=== PATIENT | male | born 1970 | race Caucasian/White ===

== ENCOUNTER 2016-09-12 19:47 | Emergency (ER) | payer OTHER ==
[2016-09-12] MEDS ORDERED: ADENOSINE 3 MG/ML 2 ML VIAL IVP STA (20:04)
[2016-09-12] MEDS ORDERED: SODIUM CHLORIDE 0.9% 1,000 ML IV STA ×3 (20:08→20:10)
[2016-09-12 20:22] LABS: Appearance,Urine Clear (Clear); Aty Lym Flag Marked; Bilirubin,Urine Negative (Negative); CH 31.5; CHCM 36.5; Glucose,Urine (UA) Negative (Negative); HCT 45.9 % (39.0-53.0); HDW 2.85; HGB 16.8 gm/dL (13.0-17.5); Ketones,Urine Negative (Negative); Leukocyte Esterase,Urine Negative (Negative); MCH 31.7 pg (25.0-35.0); MCHC 36.6 g/dL (31.0-37.0); MCV 86.6 fL (80.0-100.0); Mean Platelet Volume 6.6; Nitrite,Urine Negative (Negative); PH, Urine 6.5 (5.0-8.0); Protein,Urine Negative (Negative); RDW 12.6 % (11.5-15.5); Specific Gravity,Urine 1.003 (1.001-1.035); UA Billing (MACRO vs. MICRO) CHEM; Urobilinogen,Urine <2.0 mg/dL (<2.0); WBC 8.4 k/uL (3.8-10.6); WBC (Perox) 8.24
[2016-09-12 20:32] LABS: ALT 230 U/L (21-72); AST 186 U/L (17-59); Alkaline Phosphatase 176 U/L (38-126); Anion Gap 13 mmol/L; Blood Urea Nitrogen 16 mg/dL (9-20); Calcium 8.9 mg/dL (8.4-10.2); Carbon Dioxide 24 mmol/L (22-30); Chloride 99 mmol/L (98-107); Glucose 188 mg/dL (74-99); Non-African American GFR(MDRD) 58 (>60 ml/min/1.73 sqM); Phosphorous 2.2 mg/dL (2.5-4.5); Potassium 4.2 mmol/L (3.5-5.1); Sodium 136 mmol/L (137-145); Total Protein 7.7 g/dL (6.3-8.2)
[2016-09-12] MEDS ORDERED: RX INFO: IV CONTRAST WAS GIVEN 1 EACH MISC MISCELLANE PRN (20:42)
[2016-09-12 20:46] LABS: Creatine Kinase 189 U/L (55-170)
[2016-09-12 20:47] LABS: Add Differential Manual Differential
--- NOTE | 2016-09-12 20:50 | ED ---
General Adult HPI - General Chief complaint: Chest Pain Stated complaint: Chest Pain Time Seen by Provider: 09/12/16 20:08 Source: patient, RN notes reviewed, old records reviewed Mode of arrival: wheelchair Limitations: no limitations - History of Present Illness Initial comments: This is a 46-year-old male in the ER for evaluation of shortness of breath and tachycardia and feels he is going to pass out, near syncope. Patient has no prior history of this event happening. Patient is on vacation at this time. Patient denies any drugs or alcohol abuse. Patient denies significant chest pain which is now feel well. Medical history is consistent for blood clots and PE in the is an outgrowth every day. No recent fevers, congestion, patient's it is our smoke earlier and was having some shortness of breath. No recent fevers - Related Data Home Medications Medication Instructions Recorded Confirmed Acetaminophen [Tylenol] 1,000 mg PO BID PRN 09/12/16 09/12/16 Apixaban [Eliquis] 5 mg PO BID 09/12/16 09/12/16 Allergies Allergy/AdvReac Type Severity Reaction Status Date / Time No Known Allergies Allergy Verified 09/12/16 20:30 Review of Systems ROS Statement: Those systems with pertinent positive or pertinent negative responses have been documented in the HPI. ROS Other: All systems not noted in ROS Statement are negative. Past Medical History Additional Past Medical History / Comment(s): PE History of Any Multi-Drug Resistant Organisms: None Reported Past Surgical History: No Surgical Hx Reported Past Psychological History: No Psychological Hx Reported Smoking Status: Never smoker Past Alcohol Use History: None Reported Past Drug Use History: None Reported General Exam Limitations: no limitations General appearance: alert, anxious, in distress Head exam: Present: atraumatic, normocephalic, normal inspection Eye exam: Present: normal appearance, PERRL, EOMI. Absent: scleral icterus, conjunctival injection, periorbital swelling ENT exam: Present: normal exam, mucous membranes moist Neck exam: Present: normal inspection. Absent: tenderness, meningismus, lymphadenopathy Respiratory exam: Present: normal lung sounds bilaterally. Absent: respiratory distress, wheezes, rales, rhonchi, stridor Cardiovascular Exam: Present: tachycardia, irregular rhythm, normal heart sounds. Absent: systolic murmur, diastolic murmur, rubs, gallop, clicks GI/Abdominal exam: Present: soft, normal bowel sounds. Absent: distended, tenderness, guarding, rebound, rigid Extremities exam: Present: normal inspection, full ROM, normal capillary refill. Absent: tenderness, pedal edema, joint swelling, calf tenderness Back exam: Present: normal inspection Neurological exam: Present: alert, oriented X3, CN II-XII intact Psychiatric exam: Present: normal affect, normal mood Skin exam: Present: warm, dry, intact, normal color. Absent: rash Course Vital Signs 09/12/16 09/12/16 09/12/16 19:50 20:06 20:22 Temperature 97.8 F Pulse Rate 203 H 148 H 114 H Respiratory 18 22 20 Rate Blood Pressure 156/87 126/82 127/85 O2 Sat by Pulse 99 97 Oximetry 09/12/16 09/12/16 21:23 21:24 Temperature 97.5 F L Pulse Rate 70 112 H Respiratory 18 20 Rate Blood Pressure 198/94 137/86 O2 Sat by Pulse 96 95 Oximetry - Reevaluation(s) Reevaluation #1: 09/12/16 20:49 Patient had patient has resolution of SVT after 12 mg of adenosine 09/12/16 20:49 Vagal maneuvers and carotid sinus massage with no improvement Reevaluation #2: 09/12/16 21:53 Patient remains isn't back, feeling improved, no chest pain shortness of breath , no symptoms of syncope or near syncope EKG Findings - EKG Comments: EKG Findings:: EKG shows SVT rate of 211, QRS 80, QTC 420. EKG shows sinus tachycardia rate 152, CO 120, QRS 82, QTC 400. EKG shows sinus tachycardia rate 117, CO 144, QRS 84, QTC 443 Medical Decision Making - Medical Decision Making 46 male the ER for evaluation regarding shortness of breath and heart racing. Patient found to be in SVT. Patient remains without chest pain, repeat repeat EKG showed normal sinus rhythm with no acute disease. Computed tomography scan negative, patient continued to request follow-up with cardiology - Lab Data Result diagrams: 09/12/16 20:04 09/12/16 20:04 Lab Results 09/12/16 09/12/16 09/12/16 Range/Units 20:04 20:04 20:04 WBC 8.4 (3.8-10.6) k/uL RBC 5.30 (4.30-5.90) m/uL Hgb 16.8 (13.0-17.5) gm/dL Hct 45.9 (39.0-53.0) % MCV 86.6 (80.0-100.0) fL MCH 31.7 (25.0-35.0) pg MCHC 36.6 (31.0-37.0) g/dL RDW 12.6 (11.5-15.5) % Plt Count 223 (150-450) k/uL Neutrophils % (Manual) 50.0 % Band Neutrophils % 3.0 % Lymphocytes % (Manual) 31.0 % Monocytes % (Manual) 16.0 % Neutrophils # (Manual) 4.5 (1.3-7.7) k/uL Lymphocytes # (Manual) 2.6 (1.0-4.8) k/uL Monocytes # (Manual) 1.3 H (0-1.0) k/uL Nucleated RBCs 0 (0-0) /100 WBC Manual Slide Review Performed RBC Morphology Normal PT (9.0-12.0) sec INR (<1.1) APTT (22.0-30.0) sec Sodium 136 L (137-145) mmol/L Potassium 4.2 (3.5-5.1) mmol/L Chloride 99 (98-107) mmol/L Carbon Dioxide 24 (22-30) mmol/L Anion Gap 13 mmol/L BUN 16 (9-20) mg/dL Creatinine 1.33 H (0.66-1.25) mg/dL Est GFR (MDRD) Af Amer >60 (>60 ml/min/1.73 sqM) Est GFR (MDRD) Non-Af 58 (>60 ml/min/1.73 sqM) Glucose 188 H (74-99) mg/dL Calcium 8.9 (8.4-10.2) mg/dL Phosphorus 2.2 L (2.5-4.5) mg/dL Magnesium 2.0 (1.6-2.3) mg/dL Total Bilirubin 1.0 (0.2-1.3) mg/dL AST 186 H (17-59) U/L ALT 230 H (21-72) U/L Alkaline Phosphatase 176 H (38-126) U/L Total Creatine Kinase 189 H (55-170) U/L CK-MB (CK-2) 0.7 (0.0-2.4) ng/mL CK-MB (CK-2) Rel Index 0.4 Troponin I <0.012 (0.000-0.034) ng/mL Total Protein 7.7 (6.3-8.2) g/dL Albumin 4.3 (3.5-5.0) g/dL Urine Color Urine Appearance (Clear) Urine pH (5.0-8.0) Ur Specific [place] (1.001-1.035) Urine Protein (Negative) Urine Glucose (UA) (Negative) Urine Ketones (Negative) Urine Blood (Negative) Urine Nitrite (Negative) Urine Bilirubin (Negative) Urine Urobilinogen (<2.0) mg/dL Ur Leukocyte Esterase (Negative) 09/12/16 09/12/16 Range/Units 20:04 20:04 WBC (3.8-10.6) k/uL RBC (4.30-5.90) m/uL Hgb (13.0-17.5) gm/dL Hct (39.0-53.0) % MCV (80.0-100.0) fL MCH (25.0-35.0) pg MCHC (31.0-37.0) g/dL RDW (11.5-15.5) % Plt Count (150-450) k/uL Neutrophils % (Manual) % Band Neutrophils % % Lymphocytes % (Manual) % Monocytes % (Manual) % Neutrophils # (Manual) (1.3-7.7) k/uL Lymphocytes # (Manual) (1.0-4.8) k/uL Monocytes # (Manual) (0-1.0) k/uL Nucleated RBCs (0-0) /100 WBC Manual Slide Review RBC Morphology PT 10.7 (9.0-12.0) sec INR 1.1 (<1.1) APTT 25.4 (22.0-30.0) sec Sodium (137-145) mmol/L Potassium (3.5-5.1) mmol/L Chloride (98-107) mmol/L Carbon Dioxide (22-30) mmol/L Anion Gap mmol/L BUN (9-20) mg/dL Creatinine (0.66-1.25) mg/dL Est GFR (MDRD) Af Amer (>60 ml/min/1.73 sqM) Est GFR (MDRD) Non-Af (>60 ml/min/1.73 sqM) Glucose (74-99) mg/dL Calcium (8.4-10.2) mg/dL Phosphorus (2.5-4.5) mg/dL Magnesium (1.6-2.3) mg/dL Total Bilirubin (0.2-1.3) mg/dL AST (17-59) U/L ALT (21-72) U/L Alkaline Phosphatase (38-126) U/L Total Creatine Kinase (55-170) U/L CK-MB (CK-2) (0.0-2.4) ng/mL CK-MB (CK-2) Rel Index Troponin I (0.000-0.034) ng/mL Total Protein (6.3-8.2) g/dL Albumin (3.5-5.0) g/dL Urine Color Light Yellow Urine Appearance Clear (Clear) Urine pH 6.5 (5.0-8.0) Ur Specific [place] 1.003 (1.001-1.035) Urine Protein Negative (Negative) Urine Glucose (UA) Negative (Negative) Urine Ketones Negative (Negative) Urine Blood Negative (Negative) Urine Nitrite Negative (Negative) Urine Bilirubin Negative (Negative) Urine Urobilinogen <2.0 (<2.0) mg/dL Ur Leukocyte Esterase Negative (Negative) - Radiology Data Radiology results: report reviewed (CT chest is negative for PE), image reviewed Critical Care Time Critical Care Time: Yes Total Critical Care Time: 31 Disposition Clinical Impression: SVT (supraventricular tachycardia) Disposition: HOME SELF-CARE Condition: Good Instructions: Supraventricular Tachycardia (ED) Referrals: Laura Isidro MD [STAFF PHYSICIAN] - 1-2 days
[2016-09-12 20:52] LABS: INR 1.1 (<1.1); Manual Review Performed; Nucleated Red Blood Cells 0 /100 WBC (0-0); Partial Thromboplastin Time 25.4 sec (22.0-30.0); Prothrombin Time 10.7 sec (9.0-12.0); RBC Morphology Normal; Total Cells Counted 100
[2016-09-12 20:57] LABS: Creatine Kinase MB 0.7 ng/mL (0.0-2.4); Troponin I <0.012 ng/mL (0.000-0.034)
--- NOTE | 2016-09-12 21:25 | CT ---
EXAMINATION TYPE: CT angio chest DATE OF EXAM: 09/12/2016 9:14 PM COMPARISON: NONE HISTORY: Patient complains of rapid heart beat. CT DLP: 390.3 mGycm Automated exposure control for dose reduction was used. CONTRAST: CTA scan of the thorax is performed with IV Contrast, patient injected with 80 mL of Visipaque 320, p ulmonary embolism protocol. There are 3-D post processed images.. FINDINGS: The lungs are clear of consolidation. There is no pleural effusion. There is no pericardial effusion. There is no evidence of aortic aneurysm or dissection. I see no filling defects in the pulmonary art eries. There is no mediastinal adenopathy. There are no hilar masses. IMPRESSION: NO EVIDENCE OF PULMONARY EMBOLISM. NO EVIDENCE OF BRONCHOPNEUMONIA. CALCIFIED GALLSTONE IS NOTED.
[2016-09-12 21:26] VITALS: RESP 20
[2016-09-12] MEDS ORDERED: IBUPROFEN 800 MG TAB PO STA (22:08)
[2016-09-12] MEDS ORDERED: ACETAMINOPHEN TAB 500 MG TAB PO STA (22:08)
[2016-09-12 22:11] VITALS: BP 104/56; PULSE 99; TEMP 100.7
== END 2016-09-12 22:25 | disposition home or self-care (01) ==
LOC: EC 19:47
DX: I47.1 Supraventricular tachycardia (principal); Z79.01 Long term (current) use of anticoagulants; Z86.711 Personal history of pulmonary embolism
CPT/HCPCS: 36415; 93005; 80053; 84443; 82550; 82553; 83735; 84100; 84484; 85025; 85610; 85730; 81003; 87086; 71275; 99291; 96374; 96361 ×2; Q9967; J0153